=== PATIENT | female | born 1995 | race Caucasian/White ===

== ENCOUNTER 2024-09-17 08:07 | Emergency (ER) | payer BC, SELFPAY ==
--- NOTE | ~2024-09-17 | XR_ITS ---
EXAMINATION: XR ankle LT min 3V DATE: 09/17/2024 08:30 INDICATION: Lateral left malleolar pain post twisting ankle injury TECHNIQUE: Anteroposterior, oblique, mortise, and lateral views of the left ankle were obtained. COMPARISON: None. FINDINGS: Alignment is normal. No fracture. Joint spaces are well maintained. Plantar calcaneal spur. No ankle joint effusion. The soft tissues are unremarkable. IMPRESSION: 1. No acute osseous abnormality. Reviewed, dictated and finalized at location A. [employer]G MACHINE OPERATOR
[2024-09-17 08:30] VITALS: BP 143/94; PULSE 90; RESP 16; TEMP 36.6; O2SAT 99
--- NOTE | 2024-09-17 09:34 | ED.LOWEXIN ---
HPI - Extremity Injury (Lower) General Chief Complaint: Extremity Injury, Lower Stated Complaint: Left ankle injury Time Seen by Provider: 09/17/24 08:15 History of Present Illness HPI Narrative: patient rolled her ankle on a step yesterday, then her dog slept on it last night, she has been able to bear weight although but does have some pain to her left ankle Review of Systems Review of Systems: All systems reviewed & are unremarkable except as noted in HPI and below Exam Narrative: EXAMINATION OF ORGAN SYSTEMS/BODY AREAS: Constitutional: Vital signs per nursing GENERAL:[No acute distress, non-toxic appearing.] HEAD: Normal with no signs of head trauma. EYES: EOMI, conjunctiva normal ENT: Hearing grossly intact LUNGS: Nonlabored breathing. HEART: [Regular rate and rhythm] ABD: [Soft], [nontender to palpation] EXT: Normal range of motion, slight tenderness lateral R ankle SKIN: Bruising to lateral R ankle NEURO: [Alert and oriented x 3. No gross focal sensory or strength deficits.] PSYCH: Normal affect Course Vital Signs Vital signs: Vital Signs Temperature 97.9 F 09/17/24 08:30 Pulse Rate 90 09/17/24 08:30 Respiratory Rate 16 09/17/24 08:30 Blood Pressure 143/94 H 09/17/24 08:30 Pulse Oximetry 99 09/17/24 08:30 Oxygen Delivery Room Air 09/17/24 08:30 Temperature 97.9 F 09/17/24 08:30 Pulse Rate 90 09/17/24 08:30 Respiratory Rate 16 09/17/24 08:30 Blood Pressure 143/94 H 09/17/24 08:30 Pulse Oximetry 99 09/17/24 08:30 Oxygen Delivery Room Air 09/17/24 08:30 MDM - Extremity Injury (Lower) MDM Narrative Medical decision making narrative: Patient presenting with left ankle injury, she is well-appearing here, good DP pulses and slight bruising and tenderness to the right ankle laterally, ice given, x-ray thankfully does not show any acute fracture, stable for discharge with return precautions. Discussed rice and findings with patient. Discharge Plan Discharge Clinical Impression: Ankle sprain and strain Patient Disposition: Home, Self-Care Condition: Stable Instructions: Ankle Sprain (ED) Additional Instructions: Thankfully your ankle does not appear to be broken on the x-ray. Continue to rest, ice your ankle and keep it elevated and try not to walk on it too much until it feels better. You can take ibuprofen and Tylenol as needed for pain, and follow-up with your primary care doctor. You can come back to the ER for any further issues. Patient Language: Arabic Prescriptions: New acetaminophen [Tylenol Extra Strength] 500 mg tablet 1,000 mg PO Q6H PRN (Reason: pain) Qty: 50 0RF ibuprofen 600 mg tablet 600 mg PO TID PRN (Reason: fever or pain) Qty: 30 0RF Follow-up/Referrals: Jailyn,Holly Cruz NP [Primary Care Provider] -
== END 2024-09-17 09:45 | disposition home or self-care (01) ==
PROVIDERS: Emergency Provider Emergency Medicine; PCP Nurse Practitioner Family
DX: S93.402A Sprain of unspecified ligament of left ankle, initial encounter (principal); X50.1XXA Overexertion from prolonged static or awkward postures, initial encounter
CPT/HCPCS: 73610; 99283